=== PATIENT | male | born 1965 | race Caucasian/White ===

== ENCOUNTER → 2024-10-12 | Outpatient (CLI) | payer OTHER, SELFPAY ==
--- NOTE | 2024-10-12 | EGD_PTH ---
PATIENT: SARAH LIAO LOC: [facility] U#:[id number] AGE/SX: 59/M ROOM: RE10/12/[address]: Dr. Atif Mcdowell MD : [id number] BED: DIS: 10/12/2024 SPEC #: [id number] RECD: 10/13/24 10:31 STATUS: GISELL REBrooks #: [id number] VIDYA: 10/12/24 00:[address]: Atif Mcdowell DEPT: SURGICAL PATHOLOGY RECD BY: Jonah Zavala ENTERED: 10/13/24 10:32 SP TYPE: EGD BIOPSY OTHR DR: MURIEL Bridges Tissues: A - Duodenum, NOS B - Gastric mucous membrane C - Esophagus, NOS D - Esophagus, NOS Procedures: Immunohistochemical Stains Surgery Specimen Level IV HEADER OPERATION: EGD PRE-OP DIAGNOSIS: Bloating, nausea/vomiting TISSUE SUBMITTED: A- Duodenal biopsy, B- Antral biopsy, C- Distal esophagus biopsy,D- Mid esophagus biopsy MICROSCOPIC DIAGNOSIS A. Duodenum, biopsy: - normal villous architecture. - negative for increased intraepithelial lymphocytes. B. Stomach, antrum, biopsy: - oxyntic mucosa with slight chronic inflammation. - negative for Helicobacter-like organisms (H&E). C. Distal esophagus, biopsy: - squamous mucosa negative for eosinophils. D. Mid-esophagus, biopsy: - squamous mucosa negative for eosinophils. MICROSCOPIC DESCRIPTION Slides are reviewed. GROSS DESCRIPTION A. Received in formalin in a container labeled with the patient's name, date of , and duodenal biopsy are 2 elizondo-pink fragments of mucosal tissue, each measuring 0.3 x 0.3 x 0.3 cm. Submitted in toto in A1. B. Received in formalin in a container labeled with the patient's name, date of , and antrum biopsy H/H is a 1.2 x 0.2 x 0.2 cm strip of elizondo-pink mucosal tissue. Submitted in toto in B1. C. Received in formalin in a container labeled with the patient's name, date of , and distal esophageal biopsy are multiple elizondo-pink fragments of mucosal tissue measuring 0.8 x 0.7 x 0.2 cm in aggregate. Submitted in toto in C1. D. Received in formalin in a container labeled with the patient's name, date of , and mid esophageal biopsy is a 0.6 x 0.2 x 0.2 cm fragment of elizondo-pink mucosal tissue. Submitted in toto in D1. [facility] 10-13-2024 CPT:[id number]
== END | disposition home or self-care (01) ==
LOC: LABSPEC 15:58
PROVIDERS: PCP Physician Assistant; Referring Provider Surgery; Visit Provider Surgery
DX: R11.2 Nausea with vomiting, unspecified (principal); R14.0 Abdominal distension (gaseous)
CPT/HCPCS: 88305